=== PATIENT | male | born 1990 | race Two or more races ===

== ENCOUNTER 2022-11-25 16:41 | Inpatient (IN) | payer OTHER ==
[~2022-11-25] VITALS: Ht 182.9 cm; Wt 73.7 kg
[2022-11-25] MEDS ORDERED: SODIUM CHLORIDE 0.9% 1,000 ML IV ONE (18:45)
[2022-11-25] MEDS ORDERED: ONDANSETRON HCL 4 MG/2 ML VIAL IVP ONE (18:45)
[2022-11-25] MEDS ORDERED: INSULIN REGULAR, HUMAN 100 UNITS/ML IVP ONE (18:45)
[2022-11-25 18:57] LABS: BASOPHILS % (AUTO) 1.5 % (0.0-2.0); EOSINOPHILS % (AUTO) 0 % (1.0-6.0); HEMATOCRIT 41.3 % (41-53); LYMPHOCYTES # (AUTO) 2.2 K/uL (1.0-4.8); LYMPHOCYTES % (AUTO) 10.1 % (22.0-44.0); MEAN CORPUSCULAR HEMOGLOBIN 30.4 pg (26.0-34.0); MEAN CORPUSCULAR HGB CONC 33.9 G/dL (31.0-37.0); MEAN CORPUSCULAR VOLUME 90 fL (80-100); MONOCYTES # (AUTO) 2.1 K/uL (0.1-1.0); MONOCYTES % (AUTO) 9.7 % (2.0-9.0); NEUTROPHILS # (AUTO) 17.1 K/uL (1.8-7.7); NEUTROPHILS % (AUTO) 78.7 % (40.0-70.0); PLATELET COUNT (AUTO) 591 K/uL (150-450); RED BLOOD CELL COUNT(AUTO) 4.61 MIL/uL (4.50-5.90); RED CELL DISTRIBUTION WIDTH 13.1 % (11.5-14.5); WHITE BLOOD COUNT (AUTO) 21.7 K/uL (4.5-11.0)
[2022-11-25 19:09] LABS: ALANINE AMINOTRANSFERASE 25 U/L (12-78); ALKALINE PHOSPHATASE 129 U/L (46-116); ANION GAP 26 mmol/L (8-16); ASPARTATE AMINOTRANSFERASE 16 U/L (15-37); BILIRUBIN,TOTAL 0.5 mg/dL (0.1-1.0); CALCIUM, TOTAL 9.1 mg/dL (8.8-10.5); CARBON DIOXIDE 12 mmol/L (22-29); CHLORIDE 86 mmol/L (98-107); CREATININE 2.55 mg/dL (0.60-1.30); GLOMERULAR FILTR. RATE CALC 29 mL/min (>60); LIPASE 12 U/L (16-77); TOTAL PROTEIN, SERUM 9.5 g/dL (6.4-8.2); UREA NITROGEN, BLOOD 49 mg/dL (7-18)
[2022-11-25 19:16] LABS: SODIUM SERUM 124 mmol/L (136-145)
[2022-11-25 19:17] LABS: GLUCOSE,RANDOM 630 mg/dL (70-110)
[2022-11-25 19:19] LABS: ALCOHOL, BLOOD (SERUM) < 3 mg/dL (0-10)
[2022-11-25 19:21] LABS: ACETONE,BLOOD 1:32 (NEGATIVE)
[2022-11-25] MEDS ORDERED: DEXTROSE 50%-WATER 25 GM/50 ML SYRINGE IVP PRN ×2 (19:30)
[2022-11-25] MEDS ORDERED: DEXTROSE 5%-0.45% SODIUM CHL 1,000 ML IV PRN ×2 (19:30)
[2022-11-25] MEDS ORDERED: INSULIN REGULAR, HUMAN 100 UNITS/ML IVP PRN ×2 (19:30)
[2022-11-25] MEDS ORDERED: ONDANSETRON HCL 4 MG/2 ML VIAL IVP PRN (19:30)
[2022-11-25] MEDS ORDERED: SODIUM CHLORIDE 0.45% 1,000 ML IV PRN ×2 (19:30)
[2022-11-25] MEDS ORDERED: POTASSIUM CHL 20 MEQ/0.45% NS 1,000 ML IV PRN ×2 (19:30)
[2022-11-25] MEDS ORDERED: SODIUM CHLORIDE 0.9% 1,000 ML IV SCH ×2 (19:30)
[2022-11-25] MEDS ORDERED: INSULIN REGULAR, HUMAN 100 UNITS in SODIUM CHLORIDE 0.9% 99 ML IV PRN ×4 (19:30)
[2022-11-25] MEDS ORDERED: POTASSIUM CHLORIDE 40 MEQ in SODIUM CHLORIDE 0.45% 1,000 ML IV PRN ×2 (19:30)
[2022-11-25 19:42] LABS: ABG BASE EXCESS -14.2 mmol/L (-2.0-3.0); ABG CARBOXYHEMOGLOBIN 0.3 % (0.0-1.5); ABG HCO3 15.2 mmol/L (22.0-26.0); ABG METHEMOGLOBIN 0.3 % (0.0-1.5); ABG OXYGEN CONTENT 19.5 mL/dL (15.0-23.0); ABG OXYGEN SATURATION 97.6 % (95.0-98.0); ABG PH 7.343 (7.350-7.450); ABG TOTAL HEMOGLOBIN 14.2 G/dL (12.0-18.0); PO2, ARTERIAL BG 98.2 mmHg (92.0-100.0); SOURCE, BLOOD GAS ARTERIAL; TEMPERATURE, FAHRENHEIT, BG 98.2 FAHREN (96.0-98.6)
[2022-11-25 19:49] LABS: ABG A-A DIFF O2 25.6 mmHg (10-20.0); ABG PCO2 22 mmHg (35-45); ALLEN TEST, BLOOD GAS Positive; O2 DEVICE,BLOOD GAS ROOM AIR (ROOM AIR); SITE, BLOOD GAS LFT RADIAL
[2022-11-25] MEDS ORDERED: SODIUM CHLORIDE 0.9% 0 ML ONE (19:56)
[2022-11-25] MEDS ORDERED: INSULIN REGULAR, HUMAN 100 UNITS/ML ONE (19:57)
[2022-11-25] MEDS ORDERED: CefTRIAXone 1 GM/DEXTROSE 50 ML IV ONE (20:45)
[2022-11-25 20:52] LABS: APPEARANCE,URINE CLEAR (CLEAR); BILIRUBIN,URINE NEGATIVE (NEGATIVE); COLOR,URINE LIGHT YELLOW (YELLOW); GLUCOSE, URINE (UA) >=1000 mg/dL (NEGATIVE); KETONES,URINE 80-100 mg/dL (NEGATIVE); LEUKOCYTE ESTERASE ,URINE NEGATIVE (NEGATIVE); NITRATE,URINE NEGATIVE (NEGATIVE); OCCULT BLOOD,URINE NEGATIVE (NEGATIVE); PROTEIN,URINE NEGATIVE (NEGATIVE); SPECIFIC GRAVITIY, URINE 1.021 (1.003-1.030); UROBILINOGEN,URINE <=1.0 mg/dL (<=1.0)
[2022-11-25 20:56] LABS: CREATININE,URINE RANDOM 47.6 mg/dL (30.0-125.0)
[2022-11-25 21:12] LABS: BACTERIA,URINE None Seen /HPF (None Seen); RBC,URINE None Seen /HPF (0-2); SQUAMOUS EPITHELIAL CELL,UR Few /LPF (None Seen); WBC,URINE None Seen /HPF (0-5)
[2022-11-25 22:37] LABS: COVID AG,FIA SOURCE NASAL SWAB
[2022-11-25 22:46] LABS: SARS-COV2 (COVID) ANTIGEN,FIA Negative (Negative)
[2022-11-25] MEDS: ACETAMINOPHEN 325 MG TABLET PO PRN (23:23)
[2022-11-25 23:44] LABS: CALCIUM, TOTAL 9.1 mg/dL (8.8-10.5); CREATININE 2.09 mg/dL (0.60-1.30); POTASSIUM 4.8 mmol/L (3.5-5.1)
[2022-11-26] VITALS (7 sets, daily range): BP systolic 113–135; BP diastolic 61–79; PULSE 61–88; RESP 11–20; TEMP 97.6–98.9
[2022-11-26] MEDS: HEPARIN SODIUM,PORCINE 5,000 UNITS/ML VIAL SQ SCH ×4 (00:04→23:16)
[2022-11-26 04:46] LABS: GLUCOSE,POINT OF CARE 68 MG/DL (70-110)
[2022-11-26 04:46] LABS: GLUCOSE,POINT OF CARE 78 MG/DL (70-110)
[2022-11-26 05:36] LABS: BASOPHILS % (AUTO) 1.2 % (0.0-2.0); EOSINOPHILS % (AUTO) 0 % (1.0-6.0); HEMATOCRIT 36.7 % (41-53); HEMOGLOBIN 12.9 g/dL (13.5-17.5); LYMPHOCYTES # (AUTO) 1.4 K/uL (1.0-4.8); MEAN CORPUSCULAR HEMOGLOBIN 30.6 pg (26.0-34.0); MEAN CORPUSCULAR HGB CONC 35.3 G/dL (31.0-37.0); MEAN CORPUSCULAR VOLUME 87 fL (80-100); MONOCYTES # (AUTO) 2.1 K/uL (0.1-1.0); MONOCYTES % (AUTO) 18.4 % (2.0-9.0); NEUTROPHILS # (AUTO) 7.7 K/uL (1.8-7.7); NEUTROPHILS % (AUTO) 68.4 % (40.0-70.0); PLATELET COUNT (AUTO) 467 K/uL (150-450); RED BLOOD CELL COUNT(AUTO) 4.23 MIL/uL (4.50-5.90); RED CELL DISTRIBUTION WIDTH 13.4 % (11.5-14.5); WHITE BLOOD COUNT (AUTO) 11.3 K/uL (4.5-11.0)
[2022-11-26 05:53] LABS: ALBUMIN 3.5 g/dL (3.4-5.0); BILIRUBIN,TOTAL 0.3 mg/dL (0.1-1.0); CALCIUM, TOTAL 8.6 mg/dL (8.8-10.5); CREATININE 1.71 mg/dL (0.60-1.30); MAGNESIUM 2.4 mg/dL (1.80-2.40); POTASSIUM 3.5 mmol/L (3.5-5.1); TOTAL PROTEIN, SERUM 8.1 g/dL (6.4-8.2)
[2022-11-26] MEDS ORDERED: DEXTROSE 50%-WATER 25 GM/50 ML SYRINGE IVP PRN (06:15)
[2022-11-26] MEDS ORDERED: INSULIN GLARGINE,HUM.REC.ANLOG 100 UNITS/ML SQ ONE (06:15)
[2022-11-26 07:21] LABS: GLUCOSE,POINT OF CARE 151 MG/DL (70-110)
[2022-11-26 07:21] LABS: GLUCOSE,POINT OF CARE 149 MG/DL (70-110)
[2022-11-26 07:21] LABS: GLUCOSE,POINT OF CARE 147 MG/DL (70-110)
[2022-11-26 07:21] LABS: GLUCOSE,POINT OF CARE 145 MG/DL (70-110)
[2022-11-26] MEDS: SODIUM CHLORIDE 0.9% 1,000 ML IV SCH ×2 (08:33→20:47)
[2022-11-26] MEDS: ETHYL ALCOHOL 62% ANTISEPTIC NASAL SANITIZER 0.6 ML AMPUL NASAL SCH ×2 (08:33→20:47)
[2022-11-26] MEDS: INSULIN LISPRO 100 UNITS/ML SQ PRN ×3 (09:49→17:39)
[2022-11-26 17:01] LABS: GLUCOSE,POINT OF CARE 200 MG/DL (70-110)
[2022-11-26 17:01] LABS: GLUCOSE,POINT OF CARE 108 MG/DL (70-110)
[2022-11-26 17:01] LABS: GLUCOSE,POINT OF CARE 104 MG/DL (70-110)
[2022-11-26 17:01] LABS: GLUCOSE,POINT OF CARE 196 MG/DL (70-110)
[2022-11-26 19:56] LABS: GLUCOSE,POINT OF CARE 120 MG/DL (70-110)
[2022-11-27 00:01] LABS: GLUCOSE,POINT OF CARE 111 MG/DL (70-110)
[2022-11-27] MEDS: INSULIN LISPRO 100 UNITS/ML SQ PRN ×4 (05:49→20:22)
[2022-11-27 07:30] VITALS: BP 114/59; PULSE 57; RESP 18; TEMP 97.7
[2022-11-27] MEDS: ETHYL ALCOHOL 62% ANTISEPTIC NASAL SANITIZER 0.6 ML AMPUL NASAL SCH ×2 (09:12→20:20)
[2022-11-27] MEDS: HEPARIN SODIUM,PORCINE 5,000 UNITS/ML VIAL SQ SCH ×2 (09:12→17:56)
[2022-11-27] MEDS: SODIUM CHLORIDE 0.9% 1,000 ML IV SCH ×2 (09:12→22:29)
[2022-11-27] MEDS: INSULIN GLARGINE,HUM.REC.ANLOG 100 UNITS/ML SQ SCH (09:17)
[2022-11-27] MEDS: ACETAMINOPHEN 325 MG TABLET PO PRN (13:25)
[2022-11-27 20:00] VITALS: BP 123/70; PULSE 62; RESP 18; TEMP 97.8
[2022-11-28] MEDS: HEPARIN SODIUM,PORCINE 5,000 UNITS/ML VIAL SQ SCH ×2 (00:03→08:33)
[2022-11-28 02:31] LABS: GLUCOMETER DEV NAME(LOC) 6N.1B; GLUCOSE,POINT OF CARE 338 MG/DL (70-110)
[2022-11-28 02:31] LABS: GLUCOMETER DEV NAME(LOC) 6S.2; GLUCOSE,POINT OF CARE 172 MG/DL (70-110)
[2022-11-28 02:31] LABS: GLUCOMETER DEV NAME(LOC) 6N.2B; GLUCOSE,POINT OF CARE 160 MG/DL (70-110)
[2022-11-28 02:31] LABS: GLUCOMETER DEV NAME(LOC) 6N.2B; GLUCOSE,POINT OF CARE 179 MG/DL (70-110)
[2022-11-28] MEDS: INSULIN LISPRO 100 UNITS/ML SQ PRN ×3 (05:50→12:29)
[2022-11-28 07:11] LABS: ANION GAP 6 mmol/L (8-16); CALCIUM, TOTAL 8.6 mg/dL (8.8-10.5); CARBON DIOXIDE 26 mmol/L (22-29); CHLORIDE 101 mmol/L (98-107); CREATININE 0.83 mg/dL (0.60-1.30); GLOMERULAR FILTR. RATE CALC > 60 mL/min (>60); SODIUM SERUM 133 mmol/L (136-145); UREA NITROGEN, BLOOD 19 mg/dL (7-18)
[2022-11-28 07:20] LABS: GLUCOSE,RANDOM 411 mg/dL (70-110)
[2022-11-28] MEDS: ETHYL ALCOHOL 62% ANTISEPTIC NASAL SANITIZER 0.6 ML AMPUL NASAL SCH (08:33)
[2022-11-28 09:00] VITALS: BP 119/65; PULSE 59; RESP 19; TEMP 98.4
[2022-11-28] MEDS: SODIUM CHLORIDE 0.9% 1,000 ML IV SCH (10:26)
[2022-11-28] MEDS: INSULIN GLARGINE,HUM.REC.ANLOG 100 UNITS/ML SQ SCH (10:30)
[2022-11-28 11:36] LABS: GLUCOMETER DEV NAME(LOC) 6N.2B; GLUCOSE,POINT OF CARE 248 MG/DL (70-110)
[2022-11-28 11:36] LABS: GLUCOMETER DEV NAME(LOC) 6N.2B; GLUCOSE,POINT OF CARE 387 MG/DL (70-110)
[2022-11-28 17:31] LABS: GLUCOMETER DEV NAME(LOC) 6S.2; GLUCOSE,POINT OF CARE 175 MG/DL (70-110)
== END 2022-11-28 16:30 | DRG 682 ==
LOC: EMS 16:47 → ICU 11-26 02:10 → 6S 11-26 21:58
PROVIDERS: ADMIT Internal Medicine; ATTEND Internal Medicine
DX: N17.0 Acute kidney failure with tubular necrosis (principal); E11.10 Type 2 diabetes mellitus with ketoacidosis without coma; R65.11 Systemic inflammatory response syndrome (SIRS) of non-infectious origin with acute organ dysfunction; E87.1 Hypo-osmolality and hyponatremia; D68.59 Other primary thrombophilia; E87.5 Hyperkalemia; Z20.822 Contact with and (suspected) exposure to COVID-19; I10 Essential (primary) hypertension; I25.10 Atherosclerotic heart disease of native coronary artery without angina pectoris; I25.2 Old myocardial infarction; Z79.4 Long term (current) use of insulin; Z91.041 Radiographic dye allergy status
CPT/HCPCS: 36600; 71045; 80048; 80053; 81001; 81003; 82009; 82570; 82805; 82962; 83036; 83690; 83735; 83930; 84100; 84300; 85025; 87040; 87081; 93005; 93306; 99291; G0480; J0696; J1644; J1815; J2405; J3480; J7030; J7050; 36415-L1; 36415-TC